=== PATIENT | male | born 1960 | race Caucasian/White ===

== ENCOUNTER 2017-11-11 18:53 | Inpatient (IN) | payer OTHER ==
[~2017-11-11 18:53] MED LIST: Aspirin E.C. PO; THERAGRAN1 TABLET PO
[2017-11-11 19:04] LABS: BASOPHIL (%) 0.1 % (0-1); EOSINOPHIL (%) 0.1 % (0-5); HEMATOCRIT 27.1 % (38.0-50.0); IMMATURE GRANULOCYTE (%) 1.8 % (0.0-0.7); LYMPHOCYTE (%) 13.9 % (15-42); LYMPHOCYTE COUNT 2.5 K/uL (1.0-2.8); MCH 32.9 PG (29.0-34.0); MCHC 35.1 G/DL (30.0-36.0); MCV 93.8 FL (86-99); MONOCYTE (%) 4.5 % (3-12); MONOCYTE COUNT 0.8 K/uL (0-0.8); NEUTROPHIL (%) 79.6 % (45-76); NEUTROPHIL COUNT 14.1 K/uL (1.8-6.4); PLATELET COUNT 174 K/uL (156-360); RBC DIS.WIDTH-CV 12.7 % (11.8-14.6); RBC DIS.WIDTH-SD 43.7 % (39-53); WHITE BLOOD COUNT 17.7 K/uL (4.1-10.2)
[2017-11-11 19:14] LABS: HEMOGLOBIN 9.5 G/DL (12.5-16.6); RED BLOOD COUNT 2.89 M/uL (4.00-5.50)
[2017-11-11 19:19] LABS: AMYLASE 29 IU/L (1-118); CHLORIDE 107 mEq/L (99-109); SODIUM 141 mEq/L (136-147)
[2017-11-11 19:21] LABS: GLUCOSE 271 mg/dL (70-99)
[2017-11-11 19:24] LABS: SERUM ETHYL ALCOHOL < 10 mg/dL
[2017-11-11 19:25] LABS: CREATININE 1.7 mg/dL (0.6-1.3); GFR ESTIMATE (CALCULATED) 44 mL/min/ (58.99-99999)
[2017-11-11 19:26] LABS: UREA NITROGEN (BUN) 15 mg/dL (9-23)
[2017-11-11 19:28] LABS: LIPASE 26 U/L (1.0-51.0)
[2017-11-11 20:12] LABS: BASE EXCESS -6.6 mEq/L (-3 to +3); BICARBONATE 20.2 mEq/L (22-26); CARBOXY HGB 2.5 % (0-5); FI02 100 %; MECHANICAL RATE 16 resp/min; METHEMOGLOBIN 0.7 % (0-1.5); MODE ACVC; O2 SATURATION (CALCULATED) 91.4 % (95-99); PCO2 45 mm Hg (35-45); PEEP 5 CM/H20; PO2 56 mm Hg (80-100); TIDAL VOLUME 500 ML; TOTAL RESP RATE 21 resp/min; pH 7.26 (7.35-7.45)
[2017-11-11 20:13] LABS: DEVICE VENT; SITE LR
[2017-11-11 20:17] LABS: APPEARANCE CLEAR ((CLEAR)); BILIRUBIN NEGATIVE; BLOOD LARGE; COLOR YELLOW ((YELLOW)); GLUCOSE (STRIP) 50; KETONES NEGATIVE; LEUKOCYTES NEGATIVE; NITRITE NEGATIVE; PROTEIN (STRIP) 100; SPECIFIC GRAVITY 1.019 (1.000-1.030); UROBILINOGEN 0.2 MG/DL (0.2-1.0)
[2017-11-11 20:34] LABS: BACTERIA NONE SEEN /HPF; EPITHELIAL CELLS RARE /HPF; HYALINE CASTS 0-5 /LPF; MUCUS TRACE /LPF; RED BLOOD CELLS 0-5 /HPF (0-5); UCUL ADDED? NO; WHITE BLOOD CELLS 0-5 /HPF (0-5)
[2017-11-11 20:40] LABS: AMPHETAMINE NEGATIVE (500 ng/mL); BARBITURATES NEGATIVE (200 ng/mL); BENZODIAZEPINES NEGATIVE (150 ng/mL); BUPRENORPHINE NEGATIVE (10 ng/mL); COCAINE NEGATIVE (150 ng/mL); METHADONE NEGATIVE (200 ng/mL); METHAMPHETAMINE NEGATIVE (500 ng/mL); OPIATES (MORPHINE) NEGATIVE (100 ng/mL); OXYCODONE NEGATIVE (100 ng/mL); PHENCYCLIDINE NEGATIVE (25 ng/mL); PROPOXYPHENE NEGATIVE (300 ng/mL); THC CANNABINOIDS NEGATIVE (50 ng/mL); TRICYCLIC ANTIDEPRESSANTS NEGATIVE (300 ng/mL)
[2017-11-11 20:42] LABS: INTER. NORMALIZED RATIO 1.3
[2017-11-11 20:44] LABS: PTT 28.9 SEC (25-37)
[2017-11-11] MEDS ORDERED: VITAMIN D31000 UNI2 PO (21:58)
[2017-11-11] MEDS ORDERED: ASCORBIC ACID500 M3 PO (21:58)
[2017-11-11] MEDS ORDERED: [UNRECOGNIZED DRUG - REMARK] PO (22:00)
[2017-11-11 23:00] VITALS: BP 110/61
[2017-11-11 23:10] VITALS: BP 108/73
[2017-11-11 23:31] VITALS: BP 113/72
[2017-11-12] VITALS (11 sets, daily range): BP systolic 79–131; BP diastolic 48–71
[2017-11-12 00:22] LABS: BASOPHIL (%) 0.1 % (0-1); EOSINOPHIL (%) 0 % (0-5); HEMATOCRIT 38.6 % (38.0-50.0); HEMOGLOBIN 13.5 G/DL (12.5-16.6); IMMATURE GRANULOCYTE (%) 0.7 % (0.0-0.7); LYMPHOCYTE (%) 5.8 % (15-42); LYMPHOCYTE COUNT 1.1 K/uL (1.0-2.8); MCV 91.5 FL (86-99); MONOCYTE (%) 5.3 % (3-12); NEUTROPHIL (%) 88.1 % (45-76); NEUTROPHIL COUNT 16.6 K/uL (1.8-6.4); PLATELET COUNT 149 K/uL (156-360); RBC DIS.WIDTH-CV 13.2 % (11.8-14.6); RBC DIS.WIDTH-SD 44.9 % (39-53); RED BLOOD COUNT 4.22 M/uL (4.00-5.50); WHITE BLOOD COUNT 18.8 K/uL (4.1-10.2)
[2017-11-12 00:35] LABS: CHLORIDE 111 mEq/L (99-109); SODIUM 145 mEq/L (136-147)
[2017-11-12 00:37] LABS: GLUCOSE 166 mg/dL (70-99)
[2017-11-12 00:41] LABS: CREATININE 1.5 mg/dL (0.6-1.3); GFR ESTIMATE (CALCULATED) 51 mL/min/ (58.99-99999)
[2017-11-12 00:42] LABS: UREA NITROGEN (BUN) 16 mg/dL (9-23)
[2017-11-12 00:59] LABS: CREATINE KINASE 8589 IU/L (1-294)
[2017-11-12 02:21] LABS: TRIGLYCERIDES 148 MG/DL (Normal: <150)
[2017-11-12 05:57] LABS: HEMATOCRIT 34.3 % (38.0-50.0); MCH 31.8 PG (29.0-34.0); PLATELET COUNT 127 K/uL (156-360); RBC DIS.WIDTH-CV 13.5 % (11.8-14.6); RBC DIS.WIDTH-SD 45.3 % (39-53); RED BLOOD COUNT 3.77 M/uL (4.00-5.50); WHITE BLOOD COUNT 17.2 K/uL (4.1-10.2)
[2017-11-12 06:17] LABS: COMMENTS - BLOOD GASES C+ MD DRAW; SITE L FEMORAL
[2017-11-12 06:18] LABS: BICARBONATE 19.8 mEq/L (22-26); CARBOXY HGB 1.8 % (0-5); DEVICE AC; FI02 100 %; METHEMOGLOBIN 0.9 % (0-1.5); MODE AC; PCO2 35 mm Hg (35-45); PEEP 5 CM/H20; PO2 69 mm Hg (80-100); TIDAL VOLUME 500 ML; pH 7.36 (7.35-7.45)
[2017-11-12 06:19] LABS: BASE EXCESS -4.9 mEq/L (-3 to +3)
[2017-11-12 06:20] LABS: MECHANICAL RATE 16 resp/min; TOTAL RESP RATE 20 resp/min
[2017-11-12 06:21] LABS: ALKALINE PHOSPHATASE 54 IU/L (3-129); ALT (GPT) 80 IU/L (3-49); AST (GOT) 159 IU/L (2-34); CHLORIDE 113 MEQ/L (99-109); CREATININE 1.1 MG/DL (0.6-1.3); GFR ESTIMATE (CALCULATED) > 59 mL/min/ (58.99-99999); GLUCOSE 197 mg/dL (70-99); MAGNESIUM 1.7 mg/dl (1.3-2.7); PHOSPHORUS 2.8 mg/dL (2.5-4.9); POTASSIUM 4.3 MEQ/L (3.7-5.4); SODIUM 143 MEQ/L (136-147); TOTAL BILIRUBIN 0.4 MG/DL (0.0-1.0); TOTAL PROTEIN 4.8 G/DL (6.4-8.3); UREA NITROGEN (BUN) 15 mg/dL (9-23)
[2017-11-12 07:17] LABS: CREATINE KINASE 7697 IU/L (1-294)
[2017-11-12 10:00] LABS: HEMOGLOBIN A1c (GLYCOHEMOGLOB) 5.4 % (Below 5.7)
[2017-11-13] VITALS (11 sets, daily range): BP systolic 86–142; BP diastolic 49–79
[2017-11-14] VITALS (13 sets, daily range): BP systolic 77–124; BP diastolic 49–74
[2017-11-14 06:54] LABS: CREATINE KINASE 742 IU/L (1-294)
[2017-11-14 07:06] LABS: CHLORIDE 114 MEQ/L (99-109); CREATININE 0.8 MG/DL (0.6-1.3); GFR ESTIMATE (CALCULATED) > 59 mL/min/ (58.99-99999); GLUCOSE 133 mg/dL (70-99); POTASSIUM 3.9 MEQ/L (3.7-5.4); SODIUM 146 MEQ/L (136-147); UREA NITROGEN (BUN) 12 mg/dL (9-23)
[2017-11-14 07:09] LABS: BASOPHIL (%) 0.1 % (0-1); EOSINOPHIL (%) 0.1 % (0-5); HEMATOCRIT 21.4 % (38.0-50.0); IMMATURE GRANULOCYTE (%) 0.9 % (0.0-0.7); LYMPHOCYTE (%) 13.2 % (15-42); LYMPHOCYTE COUNT 1.3 K/uL (1.0-2.8); MCH 32.6 PG (29.0-34.0); MCHC 34.1 G/DL (30.0-36.0); MONOCYTE (%) 5.1 % (3-12); MONOCYTE COUNT 0.5 K/uL (0-0.8); NEUTROPHIL (%) 80.6 % (45-76); NEUTROPHIL COUNT 7.7 K/uL (1.8-6.4); PLAT.SUFFICIENCY DECREASED; RBC DIS.WIDTH-CV 14.2 % (11.8-14.6); RBC DIS.WIDTH-SD 49.3 % (39-53); WHITE BLOOD COUNT 9.5 K/uL (4.1-10.2)
[2017-11-14 07:15] LABS: HEMOGLOBIN 7.3 G/DL (12.5-16.6); MCV 95.5 FL (86-99); PLATELET COUNT 75 K/uL (156-360); RED BLOOD COUNT 2.24 M/uL (4.00-5.50)
[2017-11-14 23:01] LABS: BASOPHIL (%) 0.2 % (0-1); EOSINOPHIL (%) 0.1 % (0-5); HEMATOCRIT 26.4 % (38.0-50.0); IMMATURE GRANULOCYTE (%) 1.2 % (0.0-0.7); LYMPHOCYTE (%) 11.4 % (15-42); LYMPHOCYTE COUNT 1.2 K/uL (1.0-2.8); MCH 31.8 PG (29.0-34.0); MCHC 34.1 G/DL (30.0-36.0); MCV 93.3 FL (86-99); MONOCYTE COUNT 0.5 K/uL (0-0.8); NEUTROPHIL (%) 82.1 % (45-76); NEUTROPHIL COUNT 8.3 K/uL (1.8-6.4); NRBC (%) 0.2 /100 WBC (0-0); PLATELET COUNT 79 K/uL (156-360); RBC DIS.WIDTH-CV 15.6 % (11.8-14.6); RBC DIS.WIDTH-SD 53.1 % (39-53); WHITE BLOOD COUNT 10.1 K/uL (4.1-10.2)
[2017-11-14 23:02] LABS: INTER. NORMALIZED RATIO 1.1; RED BLOOD COUNT 2.83 M/uL (4.00-5.50)
[2017-11-14 23:04] LABS: PTT 22.8 SEC (25-37)
[2017-11-14 23:05] LABS: CHLORIDE 108 mEq/L (99-109); POTASSIUM 3.4 mEq/L (3.7-5.4); SODIUM 145 mEq/L (136-147)
[2017-11-14 23:07] LABS: GLUCOSE 132 mg/dL (70-99)
[2017-11-14 23:10] LABS: CREATININE 0.9 mg/dL (0.6-1.3); GFR ESTIMATE (CALCULATED) > 59 mL/min/ (58.99-99999)
[2017-11-14 23:11] LABS: UREA NITROGEN (BUN) 15 mg/dL (9-23)
[2017-11-15] VITALS (23 sets, daily range): BP systolic 104–167; BP diastolic 53–93
[2017-11-15 00:36] LABS: CREATINE KINASE 752 IU/L (1-294)
[2017-11-15 06:51] LABS: BASOPHIL (%) 0.3 % (0-1); EOSINOPHIL (%) 0.2 % (0-5); HEMATOCRIT 29.1 % (38.0-50.0); IMMATURE GRANULOCYTE (%) 1.3 % (0.0-0.7); LYMPHOCYTE (%) 11.9 % (15-42); LYMPHOCYTE COUNT 1.3 K/uL (1.0-2.8); MCH 31.4 PG (29.0-34.0); MCHC 34.4 G/DL (30.0-36.0); MCV 91.5 FL (86-99); MONOCYTE (%) 6.1 % (3-12); MONOCYTE COUNT 0.7 K/uL (0-0.8); NEUTROPHIL (%) 80.2 % (45-76); NEUTROPHIL COUNT 8.5 K/uL (1.8-6.4); NRBC (%) 0.4 /100 WBC (0-0); PLATELET COUNT 84 K/uL (156-360); RBC DIS.WIDTH-CV 15.4 % (11.8-14.6); RBC DIS.WIDTH-SD 51.6 % (39-53); RED BLOOD COUNT 3.18 M/uL (4.00-5.50); WHITE BLOOD COUNT 10.6 K/uL (4.1-10.2)
[2017-11-15 07:21] LABS: CHLORIDE 103 MEQ/L (99-109); GFR ESTIMATE (CALCULATED) > 59 mL/min/ (58.99-99999); GLUCOSE 156 mg/dL (70-99); PHOSPHORUS 3.6 mg/dL (2.5-4.9); SODIUM 147 MEQ/L (136-147); UREA NITROGEN (BUN) 17 mg/dL (9-23)
[2017-11-15 08:10] LABS: COMMENTS - BLOOD GASES C+; DEVICE VENT; FI02 40 %; SITE LR
[2017-11-15 08:11] LABS: BASE EXCESS 13.1 mEq/L (-3 to +3); BICARBONATE 36.7 mEq/L (22-26); CARBOXY HGB 1.5 % (0-5); MECHANICAL RATE 18 resp/min; MODE AC; O2 SATURATION (CALCULATED) 97.4 % (95-99); PCO2 42 mm Hg (35-45); PEEP 10 CM/H20; PO2 69 mm Hg (80-100); TIDAL VOLUME 500 ML; TOTAL RESP RATE 24 resp/min; pH 7.55 (7.35-7.45)
[2017-11-15 20:25] LABS: CHLORIDE 108 MEQ/L (99-109); POTASSIUM 3.4 MEQ/L (3.7-5.4); SODIUM 144 MEQ/L (136-147)
[2017-11-15 20:30] LABS: CREATININE 0.8 MG/DL (0.6-1.3); GFR ESTIMATE (CALCULATED) > 59 mL/min/ (58.99-99999); GLUCOSE 130 mg/dL (70-99); UREA NITROGEN (BUN) 18 mg/dL (9-23)
[2017-11-16] VITALS (22 sets, daily range): BP systolic 106–154; BP diastolic 56–88
[2017-11-16 00:33] LABS: CHLORIDE 107 mEq/L (99-109); POTASSIUM 3.4 mEq/L (3.7-5.4); SODIUM 141 mEq/L (136-147)
[2017-11-16 00:35] LABS: GLUCOSE 129 mg/dL (70-99)
[2017-11-16 00:39] LABS: CREATININE 0.8 mg/dL (0.6-1.3); GFR ESTIMATE (CALCULATED) > 59 mL/min/ (58.99-99999)
[2017-11-16 00:40] LABS: UREA NITROGEN (BUN) 18 mg/dL (9-23)
[2017-11-16 00:41] LABS: CREATINE KINASE 774 IU/L (1-294)
[2017-11-16 06:01] LABS: CHLORIDE 112 MEQ/L (99-109); CREATINE KINASE 633 IU/L (1-294); CREATININE 0.7 MG/DL (0.6-1.3); GFR ESTIMATE (CALCULATED) > 59 mL/min/ (58.99-99999); GLUCOSE 143 mg/dL (70-99); POTASSIUM 3.9 MEQ/L (3.7-5.4); SODIUM 144 MEQ/L (136-147); UREA NITROGEN (BUN) 15 mg/dL (9-23)
[2017-11-16 13:07] LABS: CHLORIDE 112 MEQ/L (99-109); CREATINE KINASE 424 IU/L (1-294); CREATININE 0.7 MG/DL (0.6-1.3); GFR ESTIMATE (CALCULATED) > 59 mL/min/ (58.99-99999); GLUCOSE 130 mg/dL (70-99); POTASSIUM 3.7 MEQ/L (3.7-5.4); SODIUM 145 MEQ/L (136-147); UREA NITROGEN (BUN) 15 mg/dL (9-23)
[2017-11-16 18:50] LABS: CHLORIDE 115 MEQ/L (99-109); CREATINE KINASE 343 IU/L (1-294); CREATININE 0.7 MG/DL (0.6-1.3); GFR ESTIMATE (CALCULATED) > 59 mL/min/ (58.99-99999); GLUCOSE 145 mg/dL (70-99); POTASSIUM 3.8 MEQ/L (3.7-5.4); SODIUM 145 MEQ/L (136-147); UREA NITROGEN (BUN) 16 mg/dL (9-23)
[2017-11-17] VITALS (24 sets, daily range): BP systolic 113–161; BP diastolic 56–82
[2017-11-17 01:11] LABS: CHLORIDE 113 mEq/L (99-109); POTASSIUM 3.8 mEq/L (3.7-5.4); SODIUM 144 mEq/L (136-147)
[2017-11-17 01:13] LABS: GLUCOSE 128 mg/dL (70-99)
[2017-11-17 01:17] LABS: CREATININE 0.7 mg/dL (0.6-1.3); GFR ESTIMATE (CALCULATED) > 59 mL/min/ (58.99-99999)
[2017-11-17 01:18] LABS: UREA NITROGEN (BUN) 16 mg/dL (9-23)
[2017-11-17 01:19] LABS: CREATINE KINASE 324 IU/L (1-294)
[2017-11-17 05:42] LABS: CHLORIDE 111 MEQ/L (99-109); CREATINE KINASE 275 IU/L (1-294); CREATININE 0.7 MG/DL (0.6-1.3); GFR ESTIMATE (CALCULATED) > 59 mL/min/ (58.99-99999); GLUCOSE 164 mg/dL (70-99); POTASSIUM 3.8 MEQ/L (3.7-5.4); SODIUM 145 MEQ/L (136-147); UREA NITROGEN (BUN) 16 mg/dL (9-23)
[2017-11-17 10:00] LABS: DEVICE VENT; FI02 30 %; MODE SPONT PS; PCO2 31 mm Hg (35-45); PEEP 8 CM/H20; PO2 53 mm Hg (80-100); PRES. SUPPORT 12 CM/H2O; SITE LR; TOTAL RESP RATE 24 resp/min
[2017-11-17 10:01] LABS: BASE EXCESS 1.4 mEq/L (-3 to +3); BICARBONATE 24.2 mEq/L (22-26); METHEMOGLOBIN 0.7 % (0-1.5)
[2017-11-17 11:02] LABS: BASOPHIL (%) 0.2 % (0-1); EOSINOPHIL (%) 1.9 % (0-5); EOSINOPHIL COUNT 0.2 K/uL (0-0.3); HEMATOCRIT 28.8 % (38.0-50.0); HEMOGLOBIN 9.5 G/DL (12.5-16.6); IMMATURE GRANULOCYTE (%) 4.7 % (0.0-0.7); LYMPHOCYTE (%) 11.7 % (15-42); LYMPHOCYTE COUNT 1.2 K/uL (1.0-2.8); MCH 31.1 PG (29.0-34.0); MCV 94.4 FL (86-99); MONOCYTE (%) 6.8 % (3-12); MONOCYTE COUNT 0.7 K/uL (0-0.8); NEUTROPHIL (%) 74.7 % (45-76); NEUTROPHIL COUNT 7.8 K/uL (1.8-6.4); NRBC (%) 0.2 /100 WBC (0-0); RBC DIS.WIDTH-CV 14.5 % (11.8-14.6); RBC DIS.WIDTH-SD 48.4 % (39-53); RED BLOOD COUNT 3.05 M/uL (4.00-5.50); WHITE BLOOD COUNT 10.4 K/uL (4.1-10.2)
[2017-11-17 11:07] LABS: PLATELET COUNT 118 K/uL (156-360)
[2017-11-17 11:36] LABS: CHLORIDE 111 MEQ/L (99-109); POTASSIUM 3.6 MEQ/L (3.7-5.4); SODIUM 143 MEQ/L (136-147)
[2017-11-17 11:42] LABS: CREATININE 0.6 MG/DL (0.6-1.3); GFR ESTIMATE (CALCULATED) > 59 mL/min/ (58.99-99999); GLUCOSE 131 mg/dL (70-99); UREA NITROGEN (BUN) 17 mg/dL (9-23)
[2017-11-17 12:20] LABS: CREATINE KINASE 213 IU/L (1-294)
[2017-11-17 12:44] LABS: ALBUMIN 3.9 g/dL (3.2-4.8)
[2017-11-17 12:47] LABS: TOTAL PROTEIN 5.7 g/dL (6.4-8.3)
[2017-11-17 12:48] LABS: TOTAL BILIRUBIN 0.8 mg/dL (0.0-1.0)
[2017-11-17 12:49] LABS: ALKALINE PHOSPHATASE 41 IU/L (3-129)
[2017-11-17 12:52] LABS: AST (GOT) 36 IU/L (2-34); DIRECT BILIRUBIN 0.3 mg/dL (0.0-0.3)
[2017-11-17 12:53] LABS: ALT (GPT) 47 IU/L (3-49)
[2017-11-17 18:39] LABS: CHLORIDE 112 mEq/L (99-109); POTASSIUM 3.7 mEq/L (3.7-5.4); SODIUM 143 mEq/L (136-147)
[2017-11-17 18:41] LABS: GLUCOSE 138 mg/dL (70-99)
[2017-11-17 18:45] LABS: CREATININE 0.8 mg/dL (0.6-1.3); GFR ESTIMATE (CALCULATED) > 59 mL/min/ (58.99-99999)
[2017-11-17 18:46] LABS: UREA NITROGEN (BUN) 22 mg/dL (9-23)
[2017-11-18] VITALS (24 sets, daily range): BP systolic 95–143; BP diastolic 56–77
[2017-11-18 00:59] LABS: CHLORIDE 111 mEq/L (99-109); POTASSIUM 3.8 mEq/L (3.7-5.4); SODIUM 142 mEq/L (136-147)
[2017-11-18 01:01] LABS: GLUCOSE 138 mg/dL (70-99)
[2017-11-18 01:05] LABS: CREATININE 0.7 mg/dL (0.6-1.3); GFR ESTIMATE (CALCULATED) > 59 mL/min/ (58.99-99999)
[2017-11-18 01:06] LABS: UREA NITROGEN (BUN) 18 mg/dL (9-23)
[2017-11-18 05:10] LABS: HEMATOCRIT 30.5 % (38.0-50.0); HEMOGLOBIN 10.2 G/DL (12.5-16.6); MCH 31.4 PG (29.0-34.0); MCHC 33.4 G/DL (30.0-36.0); MCV 93.8 FL (86-99); RBC DIS.WIDTH-CV 14.3 % (11.8-14.6); RBC DIS.WIDTH-SD 47.7 % (39-53); RED BLOOD COUNT 3.25 M/uL (4.00-5.50); WHITE BLOOD COUNT 10.2 K/uL (4.1-10.2)
[2017-11-18 05:15] LABS: PLATELET COUNT 169 K/uL (156-360)
[2017-11-18 05:32] LABS: CHLORIDE 106 MEQ/L (99-109); CREATININE 0.7 MG/DL (0.6-1.3); GFR ESTIMATE (CALCULATED) > 59 mL/min/ (58.99-99999); GLUCOSE 142 mg/dL (70-99); POTASSIUM 3.9 MEQ/L (3.7-5.4); SODIUM 141 MEQ/L (136-147); UREA NITROGEN (BUN) 17 mg/dL (9-23)
[2017-11-18 06:59] LABS: ABS NEUTROPHIL COUNT 7.2; ANISOCYTOSIS NONE SEEN; ATYPICAL LYMPHOCYTE 0.9 %; BAND NEUTROPHILS 0.9 % (0-8.0); EOSINOPHIL ABS CT 0.2; EOSINOPHILS 1.8 % (0-5.0); LYMPHOCYTES 19.6 % (15.0-45.0); MONOCYTES 4.5 % (0-9.0); MYELOCYTES 2.7 %; PLAT.SUFFICIENCY ADEQUATE; POLYCHROMASIA 1+; SEG.NEUTROPHILS 69.6 % (46.0-76.0)
[2017-11-18 10:10] LABS: COMMENTS - BLOOD GASES A+C+; DEVICE VENT; FI02 40 %; MODE SPONT; PEEP 5 CM/H20; PRES. SUPPORT 8 CM/H2O; SITE LR; TIDAL VOLUME 450 ML; TOTAL RESP RATE 26 resp/min
[2017-11-18 10:11] LABS: BASE EXCESS 0.7 mEq/L (-3 to +3); BICARBONATE 23.4 mEq/L (22-26); CARBOXY HGB 1.7 % (0-5); PCO2 30 mm Hg (35-45); PO2 70 mm Hg (80-100)
[2017-11-18 12:54] LABS: CHLORIDE 108 MEQ/L (99-109); CREATININE 0.7 MG/DL (0.6-1.3); GFR ESTIMATE (CALCULATED) > 59 mL/min/ (58.99-99999); GLUCOSE 122 mg/dL (70-99); POTASSIUM 3.8 MEQ/L (3.7-5.4); SODIUM 142 MEQ/L (136-147); UREA NITROGEN (BUN) 18 mg/dL (9-23)
[2017-11-18 14:11] LABS: MAGNESIUM 1.9 mg/dl (1.3-2.7); PHOSPHORUS 2.8 mg/dL (2.5-4.9)
[2017-11-19] VITALS (23 sets, daily range): BP systolic 108–162; BP diastolic 40–127
[2017-11-19 05:12] LABS: HEMOGLOBIN 9.6 G/DL (12.5-16.6); MCH 31.3 PG (29.0-34.0); MCHC 33.1 G/DL (30.0-36.0); MCV 94.5 FL (86-99); PLATELET COUNT 192 K/uL (156-360); RBC DIS.WIDTH-CV 14.2 % (11.8-14.6); RBC DIS.WIDTH-SD 47.2 % (39-53); RED BLOOD COUNT 3.07 M/uL (4.00-5.50); WHITE BLOOD COUNT 9.4 K/uL (4.1-10.2)
[2017-11-19 05:36] LABS: CHLORIDE 108 MEQ/L (99-109); CREATININE 0.8 MG/DL (0.6-1.3); GFR ESTIMATE (CALCULATED) > 59 mL/min/ (58.99-99999); GLUCOSE 136 mg/dL (70-99); PHOSPHORUS 2.9 mg/dL (2.5-4.9); POTASSIUM 3.5 MEQ/L (3.7-5.4); SODIUM 138 MEQ/L (136-147); UREA NITROGEN (BUN) 22 mg/dL (9-23)
[2017-11-20] VITALS (24 sets, daily range): BP systolic 108–164; BP diastolic 58–94
[2017-11-20 05:30] LABS: BASOPHIL (%) 0.4 % (0-1); BASOPHIL COUNT 0.1 K/uL (0-0.1); EOSINOPHIL (%) 1.5 % (0-5); EOSINOPHIL COUNT 0.2 K/uL (0-0.3); HEMATOCRIT 28.4 % (38.0-50.0); HEMOGLOBIN 9.5 G/DL (12.5-16.6); IMMATURE GRANULOCYTE (%) 2.8 % (0.0-0.7); LYMPHOCYTE (%) 12.6 % (15-42); LYMPHOCYTE COUNT 1.7 K/uL (1.0-2.8); MCH 31.8 PG (29.0-34.0); MCHC 33.5 G/DL (30.0-36.0); MONOCYTE (%) 5.8 % (3-12); MONOCYTE COUNT 0.8 K/uL (0-0.8); NEUTROPHIL (%) 76.9 % (45-76); NEUTROPHIL COUNT 10.6 K/uL (1.8-6.4); NRBC (%) 0.3 /100 WBC (0-0); PLATELET COUNT 215 K/uL (156-360); RBC DIS.WIDTH-CV 14.5 % (11.8-14.6); RBC DIS.WIDTH-SD 49.4 % (39-53); RED BLOOD COUNT 2.99 M/uL (4.00-5.50); WHITE BLOOD COUNT 13.8 K/uL (4.1-10.2)
[2017-11-20 06:07] LABS: CHLORIDE 105 MEQ/L (99-109); CREATININE 0.8 MG/DL (0.6-1.3); GFR ESTIMATE (CALCULATED) > 59 mL/min/ (58.99-99999); GLUCOSE 156 mg/dL (70-99); MAGNESIUM 2.1 mg/dl (1.3-2.7); POTASSIUM 4.1 MEQ/L (3.7-5.4); SODIUM 138 MEQ/L (136-147); UREA NITROGEN (BUN) 21 mg/dL (9-23)
[2017-11-21] VITALS (22 sets, daily range): BP systolic 110–134; BP diastolic 58–74
[2017-11-21 05:32] LABS: BASOPHIL (%) 0.3 % (0-1); EOSINOPHIL (%) 0.9 % (0-5); EOSINOPHIL COUNT 0.1 K/uL (0-0.3); HEMATOCRIT 28.9 % (38.0-50.0); HEMOGLOBIN 9.4 G/DL (12.5-16.6); LYMPHOCYTE (%) 13.8 % (15-42); LYMPHOCYTE COUNT 1.9 K/uL (1.0-2.8); MCH 31.3 PG (29.0-34.0); MCHC 32.5 G/DL (30.0-36.0); MCV 96.3 FL (86-99); MONOCYTE (%) 4.7 % (3-12); MONOCYTE COUNT 0.6 K/uL (0-0.8); NEUTROPHIL (%) 77.3 % (45-76); NEUTROPHIL COUNT 10.4 K/uL (1.8-6.4); NRBC (%) 0.1 /100 WBC (0-0); PLATELET COUNT 237 K/uL (156-360); RBC DIS.WIDTH-CV 14.6 % (11.8-14.6); RBC DIS.WIDTH-SD 49.6 % (39-53); WHITE BLOOD COUNT 13.5 K/uL (4.1-10.2)
[2017-11-21 05:41] LABS: CHLORIDE 104 MEQ/L (99-109); CREATININE 0.8 MG/DL (0.6-1.3); GFR ESTIMATE (CALCULATED) > 59 mL/min/ (58.99-99999); GLUCOSE 145 mg/dL (70-99); MAGNESIUM 2.2 mg/dl (1.3-2.7); PHOSPHORUS 3.1 mg/dL (2.5-4.9); SODIUM 139 MEQ/L (136-147); UREA NITROGEN (BUN) 21 mg/dL (9-23)
[2017-11-22] VITALS (14 sets, daily range): BP systolic 106–135; BP diastolic 55–70
[2017-11-23] VITALS (20 sets, daily range): BP systolic 109–122; BP diastolic 58–82
[2017-11-23 09:16] LABS: BASOPHIL (%) 0.4 % (0-1); BASOPHIL COUNT 0.1 K/uL (0-0.1); EOSINOPHIL (%) 1.5 % (0-5); EOSINOPHIL COUNT 0.2 K/uL (0-0.3); HEMATOCRIT 29.8 % (38.0-50.0); HEMOGLOBIN 9.6 G/DL (12.5-16.6); IMMATURE GRANULOCYTE (%) 1.7 % (0.0-0.7); LYMPHOCYTE (%) 17.3 % (15-42); LYMPHOCYTE COUNT 1.9 K/uL (1.0-2.8); MCH 31.6 PG (29.0-34.0); MCHC 32.2 G/DL (30.0-36.0); MONOCYTE (%) 5.5 % (3-12); MONOCYTE COUNT 0.6 K/uL (0-0.8); NEUTROPHIL (%) 73.6 % (45-76); NEUTROPHIL COUNT 8.2 K/uL (1.8-6.4); NRBC (%) 0.2 /100 WBC (0-0); PLATELET COUNT 272 K/uL (156-360); RBC DIS.WIDTH-CV 15.4 % (11.8-14.6); RBC DIS.WIDTH-SD 53.9 % (39-53); RED BLOOD COUNT 3.04 M/uL (4.00-5.50); WHITE BLOOD COUNT 11.2 K/uL (4.1-10.2)
[2017-11-23 09:39] LABS: CHLORIDE 105 MEQ/L (99-109); CREATININE 0.7 MG/DL (0.6-1.3); GFR ESTIMATE (CALCULATED) > 59 mL/min/ (58.99-99999); GLUCOSE 146 mg/dL (70-99); POTASSIUM 4.2 MEQ/L (3.7-5.4); SODIUM 141 MEQ/L (136-147); UREA NITROGEN (BUN) 26 mg/dL (9-23)
[2017-11-24] VITALS (20 sets, daily range): BP systolic 109–146; BP diastolic 62–92
[2017-11-25] VITALS (14 sets, daily range): BP systolic 87–138; BP diastolic 60–82
[2017-11-25 04:42] LABS: BASOPHIL (%) 0.5 % (0-1); BASOPHIL COUNT 0.1 K/uL (0-0.1); EOSINOPHIL (%) 2.7 % (0-5); EOSINOPHIL COUNT 0.3 K/uL (0-0.3); HEMATOCRIT 29.5 % (38.0-50.0); HEMOGLOBIN 9.4 G/DL (12.5-16.6); IMMATURE GRANULOCYTE (%) 1.4 % (0.0-0.7); LYMPHOCYTE (%) 14.4 % (15-42); LYMPHOCYTE COUNT 1.6 K/uL (1.0-2.8); MCH 31.3 PG (29.0-34.0); MCHC 31.9 G/DL (30.0-36.0); MCV 98.3 FL (86-99); MONOCYTE (%) 5.9 % (3-12); MONOCYTE COUNT 0.7 K/uL (0-0.8); NEUTROPHIL (%) 75.1 % (45-76); NEUTROPHIL COUNT 8.3 K/uL (1.8-6.4); PLATELET COUNT 233 K/uL (156-360); RBC DIS.WIDTH-CV 15.3 % (11.8-14.6); RBC DIS.WIDTH-SD 53.6 % (39-53); WHITE BLOOD COUNT 11.1 K/uL (4.1-10.2)
[2017-11-25 04:55] LABS: CHLORIDE 107 mEq/L (99-109); SODIUM 142 mEq/L (136-147)
[2017-11-25 04:56] LABS: GLUCOSE 142 mg/dL (70-99)
[2017-11-25 05:00] LABS: CREATININE 0.8 mg/dL (0.6-1.3); GFR ESTIMATE (CALCULATED) > 59 mL/min/ (58.99-99999)
[2017-11-25 05:01] LABS: UREA NITROGEN (BUN) 26 mg/dL (9-23)
== END 2017-11-25 17:04 | disposition hospice, home (50) | DRG 963 ==
LOC: TRA 18:53 → 4WEST 22:24 → EDOF 22:24 → ENRESERV 22:41 → 4WEST 23:00
PROVIDERS: Emergency Medicine; Internal Medicine; Internal Medicine Critical Care Medicine; Obstetrics & Gynecology; Specialist; Student in an Organized Health Care Education/Training Program; Surgery
PROC: 0W9930Z Drainage of Right Pleural Cavity with Drainage Device, Percutaneous Approach (ICD-10-PCS; principal; 2017-11-11)
PROC: 5A1955Z Respiratory Ventilation, Greater than 96 Consecutive Hours (ICD-10-PCS; principal; 2017-11-11)
PROC: 06HY33Z Insertion of Infusion Device into Lower Vein, Percutaneous Approach (ICD-10-PCS; principal; 2017-11-11)
PROC: 0W9B30Z Drainage of Left Pleural Cavity with Drainage Device, Percutaneous Approach (ICD-10-PCS; principal; 2017-11-11)
PROC: 30233N1 Transfusion of Nonautologous Red Blood Cells into Peripheral Vein, Percutaneous Approach (ICD-10-PCS; principal; 2017-11-11)
PROC: 03HY32Z Insertion of Monitoring Device into Upper Artery, Percutaneous Approach (ICD-10-PCS; 2017-11-12)
PROC: 02HV33Z Insertion of Infusion Device into Superior Vena Cava, Percutaneous Approach (ICD-10-PCS; 2017-11-13)
DX: S06.6X6A Traumatic subarachnoid hemorrhage with loss of consciousness greater than 24 hours without return to pre-existing conscious level with patient surviving, initial encounter (principal); S06.2X6A Diffuse traumatic brain injury with loss of consciousness greater than 24 hours without return to pre-existing conscious level with patient surviving, initial encounter; S06.5X6A Traumatic subdural hemorrhage with loss of consciousness greater than 24 hours without return to pre-existing conscious level with patient surviving, initial encounter; S02.19XA Other fracture of base of skull, initial encounter for closed fracture; R40.2431 Glasgow coma scale score 3-8, in the field [EMT or ambulance]; S27.2XXA Traumatic hemopneumothorax, initial encounter; S22.42XA Multiple fractures of ribs, left side, initial encounter for closed fracture; G93.1 Anoxic brain damage, not elsewhere classified; S27.322A Contusion of lung, bilateral, initial encounter; V83.0XXA Driver of special industrial vehicle injured in traffic accident, initial encounter; Y92.410 Unspecified street and highway as the place of occurrence of the external cause; S42.032A Displaced fracture of lateral end of left clavicle, initial encounter for closed fracture; S82.142A Displaced bicondylar fracture of left tibia, initial encounter for closed fracture; S02.602A Fracture of unspecified part of body of left mandible, initial encounter for closed fracture; S02.601A Fracture of unspecified part of body of right mandible, initial encounter for closed fracture; S02.40DA Maxillary fracture, left side, initial encounter for closed fracture; S02.40FA Zygomatic fracture, left side, initial encounter for closed fracture; T79.7XXA Traumatic subcutaneous emphysema, initial encounter; Z66 Do not resuscitate; Z51.5 Encounter for palliative care; T79.6XXA Traumatic ischemia of muscle, initial encounter; J95.812 Postprocedural air leak; R57.1 Hypovolemic shock; J96.00 Acute respiratory failure, unspecified whether with hypoxia or hypercapnia; J69.0 Pneumonitis due to inhalation of food and vomit; J15.6 Pneumonia due to other Gram-negative bacteria; J15.0 Pneumonia due to Klebsiella pneumoniae; Y95 Nosocomial condition; D62 Acute posthemorrhagic anemia; E87.2 Acidosis; S87.82XA Crushing injury of left lower leg, initial encounter; S87.81XA Crushing injury of right lower leg, initial encounter; N17.9 Acute kidney failure, unspecified; K92.2 Gastrointestinal hemorrhage, unspecified; H11.32 Conjunctival hemorrhage, left eye; E66.9 Obesity, unspecified; Z68.31 Body mass index [BMI] 31.0-31.9, adult; Z85.46 Personal history of malignant neoplasm of prostate; Z90.79 Acquired absence of other genital organ(s)
CPT/HCPCS: 36600; 70450; 70486; 70551; 71045; 71260; 72125; 72129; 72132; 72170; 73590; 74177; 80048; 80048 91; 80053; 80076; 81003; 82150; 82330; 82550; 82550 91; 82948; 83036; 83605; 83690; 83735; 83930; 84100; 84478; 85025; 85025 91; 85027; 85610; 85730; 86850; 86900; 86901; 86920; 87040; 87070; 87077; 87086; 87106; 87186; 87205; 87641; 93306; 94002; 94003; 94640; 94760; 94799; 95819; 99281; 99285; C1751; C9113; G0480; J0295; J0690; J0692; J1815; J1940; J1953; J2543; J2704; J3010; J3480; J7030; J7040; J7050; J7120; P9016; P9040; P9047; S0028